=== PATIENT | male | born 1985 | race Two or more races ===

== ENCOUNTER → 2025-02-06 | Outpatient (CLI) | payer MEDICARE, MEDICAID, SELFPAY ==
--- NOTE | 2025-02-06 09:45 | XR_ITS ---
Examination: Abdomen sonogram, complete Date and time of exam: February 06, 2025 1001 hours INDICATIONS: Elevated liver function tests on laboratory examination performed 2 months ago. Technique: Multiple real-time grayscale transabdominal sonographic images of the abdomen have been obtained. Findings: Normal gallbladder Normal common bile duct 0.4 cm Pancreatic head 3.7 cm Aorta not enlarged Liver 22.6 cm irregular contour fatty infiltration Normal hepatopetal portal venous flow Patent IVC Right kidney 10.6 cm renal cortex 1.7 cm Left kidney 13.1 cm renal cortex 2.6 cm Moderate renal scar formation Spleen 11.4 cm IMPRESSION: Normal gallbladder Prominent pancreatic head 3.7 cm, consider CT abdomen post intravenous contrast follow-up Significant hepatomegaly, primary hepatocellular disease
== END | disposition home or self-care (01) ==
LOC: CDIM 09:29
PROVIDERS: PCP Nurse Practitioner Family; Referring Provider Nurse Practitioner Family; Visit Provider Nurse Practitioner Family
DX: R16.0 Hepatomegaly, not elsewhere classified (principal)
CPT/HCPCS: 76700